=== PATIENT | female | born 2000 | race Caucasian/White ===

== ENCOUNTER 2020-08-01 12:05 | Outpatient (CLI) | payer OTHER, SELFPAY ==
[2020-08-01 13:00] LABS: Add Urine Microscopic? YES; Appearance Urine Cloudy (Clear); Bacteria Urine Trace /hpf; Bilirubin Urine Negative (Negative); Blood Urine 1+ (Negative); Color Urine Yellow (Yellow); Glucose Urine UA Negative (Negative); Ketones Urine Negative (Negative); Leukocyte Esterase Ur Negative LEU/UL (Negative); Mucus Urine Rare /lpf; Nitrate Urine Negative (Negative); Protein Urine Negative (Negative); Specific Grav Ur 1.013 (1.001-1.035); Squamous Epithelial Cell Urine Many /hpf (Few); Urobilinogen Urine Negative mg/dL (<2.0); WBC Urine 0-3 /hpf
== END 2020-08-01 12:06 | disposition home or self-care (01) ==
PROVIDERS: PCP Internal Medicine; Visit Provider Clinical Nurse Specialist
DX: N30.00 Acute cystitis without hematuria (principal)
CPT/HCPCS: 81001

== ENCOUNTER 2021-02-03 02:14 | Emergency (ER) | payer OTHER, SELFPAY ==
--- NOTE | ~2021-02-03 | US_ITS ---
EXAMINATION: US OB <=14 wk fetus w TV DATE: 02/03/2021 05:08 INDICATION: Pelvic pain during first trimester TECHNIQUE: Real-time pelvic ultrasound utilizing both a transvaginal and transabdominal probe was pe rformed. The interpreting radiologist was not present for the study. COMPARISON: None. FINDINGS: The uterus measures 6.4 x 4.2 x 5.3 cm. There is an intrauterine gestational sac. A yolk sac is iden tified but no pole is yet apparent. The mean sac diameter measures 12 mm, which correlates with an estimated gestational age of 5 weeks and 6 days. The right ovary measures 6.0 x 2.4 x 2.2 cm. There are a few simple appearing anechoic cysts in the r ight ovary, the 3 largest measuring 1.9 cm, 1.8 cm and 1.2 cm in maximal diameters. The left ovary me asures 4.0 x 2.0 x 1.5 cm. Multiple anechoic cysts/follicles measuring <5 mm in the left ovary. Vascu lar flow identified in both ovaries on color Doppler. There is no free fluid in the pelvis. IMPRESSION: 1. Intrauterine gestational sac with yolk sac but no pole yet apparent likely due to early stag e of . 2. Gestational age by ultrasound based upon mean sac diameter of 5 weeks 6 day(s) +/- 4 day(s) with ultrasound estimated date of delivery ([facility]) of 09/30/2021. Reviewed, dictated and finalized at location A. IMPRESSION: 1. Intrauterine gestational sac with yolk sac but no pole yet apparent tad [place] due to early stage of . 2. Gestational age by ultrasound based upon mean sac diameter of 5 weeks 6 day (s) +/- 4 day(s) with ultrasound estimated date of delivery ([place]) of 09/30/2021 .
[2021-02-03 02:17] VITALS: BP 128/85; PULSE 87; RESP 16; TEMP 36.9; O2SAT 96
[2021-02-03 02:28] VITALS: BP 128/85; PULSE 87; RESP 18; TEMP 36.9; O2SAT 95
[2021-02-03 02:34] VITALS: BP 128/85; PULSE 87; RESP 18; TEMP 36.9; O2SAT 95
--- NOTE | 2021-02-03 02:37 | PC.NURSE ---
Pt presents to ED with complaints of peristent nausea and emesis for a few days . Pt states that she confirmed that she is via home test and states she is approx 6 weeks ; LMP 12/21/20. Pt states she has not seen her OB and was scheduled for this upcoming Friday. Pt states she has also been experiencing moderate abdomninal cramping and denies vaginal bleeding at this time. Pt states she treated nausea with zofran at approx 0100 with no relief. States she came in tonight because the nausea and emesis were becoming too much to bare. Pt alert and oriented x4. Breathing even and unlabored. Urine specimen provided. Pt provided emesis basin and call button. Advised to press call button for assistance.
--- NOTE | 2021-02-03 03:08 | PC.NURSE ---
Bedside urine test results were positive.
[2021-02-03 03:35] LABS: Basophils Absolute Auto 0.1 K/mm3 (0.0-0.1); Basophils Percent Auto 0.5 % (0.2-1.2); Eosinophils Percent Auto 0.3 % (0-4.4); Hematocrit 45.2 % (37.0-47.0); Immature Granulocyte Absolute 0.05 K/mm3 (0.00-0.031); Immature Granulocyte Percent A 0.4 % (0-0.5); Lymphocytes Percent Auto 9.2 % (18.3-44.2); Mean Corpuscular HGB Conc 35.4 g/dl (32-36); Mean Corpuscular Hemoglobin 30.3 pg (26-34); Mean Corpuscular Volume 85.6 fl (80-100); Mean Platelet Volume 11.3 fl (7.4-10.4); Monocytes Absolute Auto 0.7 K/mm3 (0.1-0.6); Monocytes Percent Auto 5.4 % (2.6-8.5); Neutrophils Percent Auto 84.2 % (45.5-73.1); Platelet Count Result 182 k/mm3 (150-375); Red Blood Count 5.28 M/mm3 (4.2-5.4); Red Cell Distribution Width 11.9 % (11.5-14.5); White Blood Count 11.9 K/mm3 (4.5-10.0)
[2021-02-03] MEDS: SODIUM CHLORIDE 0.9% IV 1,000 ML 999 ML IV CONT (03:36)
[2021-02-03] MEDS: METOCLOPRAMIDE HCL INJ 10 MG/2 ML VIAL IV PUSH (03:37)
[2021-02-03 03:40] LABS: Add Urine Microscopic? YES; Appearance Urine Cloudy (Clear); Bacteria Urine Trace /hpf; Bilirubin Urine Negative (Negative); Blood Urine Negative (Negative); Color Urine Yellow (Yellow); Glucose Urine UA Negative (Negative); Ketones Urine 2+ mg/dL (Negative); Leukocyte Esterase Ur Negative LEU/UL (Negative); Mucus Urine Few /lpf; Nitrate Urine Negative (Negative); Protein Urine 3+ mg/dL (Negative); Specific Grav Ur 1.028 (1.001-1.035); Squamous Epithelial Cell Urine Many /hpf (Few); Urobilinogen Urine Negative mg/dL (<2.0)
[2021-02-03 03:42] VITALS: BP 139/83; PULSE 97; RESP 20; O2SAT 100
--- NOTE | 2021-02-03 03:43 | PC.NURSE ---
Pt resting on cart with spouse at bedside. Pt remains alert and oriented x4 with stable vitals. Pt in no obvious distress at this time. Pt with x1 episode of emesis; new bag provided. Pt and spouse advised to press call button for assistance.
[2021-02-03 03:46] LABS: Alanine Aminotransferase 17 U/L (4-35); Alkaline Phosphatase 59 U/L (38-126); Anion Gap 18 mmol/L (8-16); Aspartate Amino Transferase 26 U/L (14-36); Bilirubin,Total 1.1 mg/dL (0.2-1.3); Blood Urea Nitrogen 9 mg/dL (7-17); Calcium 9.6 mg/dL (8.4-10.2); Carbon Dioxide 11 mmol/L (22-30); Chloride 105 mmol/L (98-107); Estimated CRCL calculation 77 ml/min; Estimated Glomerular Filt Rate > 60; Glucose 96 mg/dL (65-105); Lipase 45 U/L (23-300); Potassium 3.9 mmol/L (3.4-5.0); Sodium 134 mmol/L (137-145)
--- NOTE | 2021-02-03 03:53 | PC.NURSE ---
Pt complaining of severe abdominal pain and cramping. EDMD notified and no new order given at this time.
--- NOTE | 2021-02-03 04:32 | PC.NURSE ---
Pt to radiology via cart.
--- NOTE | 2021-02-03 04:48 | PC.NURSE ---
pt remains in radiology.
--- NOTE | 2021-02-03 04:57 | PC.NURSE ---
Pt returned from radiology. States she feels so much better in regard to nausea and emesis. Pt states abdominal pain persists.
--- NOTE | 2021-02-03 04:58 | ED.GENADULT ---
HPI - General Adult General Chief complaint: Nausea/Vomiting/Diarrhea Stated complaint: n/v approximately 6 weeks Time Seen by Provider: 02/03/21 02:37 History of Present Illness HPI narrative: Patient is a 20-year-old female who presents the emergency department chief complaint of nausea and vomiting. Patient reports that she is approximately 6 weeks and has started having nausea and vomiting today patient reports she has been nauseated throughout the and has not had care yet and has not had her first [facility] visit. Patient reports that she had no bleeding or no discharge. Patient reports not having ultrasound during this . Patient states this is her first . Patient states she is also had some cramping in her abdomen and feels uncomfortable in her abdomen. Related Data Allergies Allergy/AdvReac Type Severity Reaction Status Date / Time No Known Allergies Allergy Unknown Verified 11/14/20 14:33 Review of Systems Review of Systems: Narrative: A 10 system review of systems was completed on the patient and is negative except for what is stated in the HPI. Nursing and ancillary documentation was reviewed. PMFSH Past Medical History Medical History ADHD Depression Family history of factor V Leiden mutation Surgical History Surgical History [place] teeth removed Family History Family History Grandparent Cancer of unknown origin Diabetes mellitus Mother Factor 5 Leiden mutation, heterozygous Other Asthma Social History Social History Smoking status: Former smoker Second hand tobacco smoke exposure: No Alcohol intake: never Substance use: former Substance use type: marijuana Exam Narrative: Exam Narrative: GENERAL: Well-appearing, well-nourished, and in no acute distress. HEAD: Normocephalic, atraumatic. EYES: PERRLA and EOMI. ENT: Nares clear, no rhinorrhea or epistaxis. Mucous membranes moist. NECK: Supple. CHEST: Clear to auscultation. No respiratory distress. HEART: Regular rate and rhythm. No murmur heard. Normal peripheral pulses. ABDOMEN: Soft, mild tenderness to palpation in the lower quadrants of the abdomen, nondistended, normal active bowel sounds. EXTREMITIES: Normal range of motion. No edema. SKIN: Warm, dry, no rash. NEURO: No focal deficits. Alert and oriented x3. PSYCH: Normal mood and affect. Course Vital Signs Vital signs: Vital Signs Temperature 36.9 C 02/03/21 02:17 Pulse Rate 87 02/03/21 02:17 Respiratory Rate 16 02/03/21 02:17 Blood Pressure 128/85 02/03/21 02:17 Pulse Oximetry 96 02/03/21 02:17 Temperature 36.9 C 02/03/21 02:34 Pulse Rate 97 02/03/21 03:42 Respiratory Rate 20 02/03/21 03:42 Blood Pressure 139/83 02/03/21 03:42 Pulse Oximetry 100 02/03/21 03:42 Medical Decision Making Vital Signs Vital Signs: Vital Signs Temperature 36.9 C 02/03/21 02:17 Pulse Rate 87 02/03/21 02:17 Respiratory Rate 16 02/03/21 02:17 Blood Pressure 128/85 02/03/21 02:17 Pulse Oximetry 96 02/03/21 02:17 Temperature 36.9 C 02/03/21 02:34 Pulse Rate 97 02/03/21 03:42 Respiratory Rate 20 02/03/21 03:42 Blood Pressure 139/83 02/03/21 03:42 Pulse Oximetry 100 02/03/21 03:42 Lab Data Result diagrams: 02/03/21 03:27 02/03/21 03:27 Labs: Lab Results 02/03/21 02/03/21 02/03/21 Range/Units 03:27 03:27 03:27 WBC 11.9 H (4.5-10.0) K/mm3 RBC 5.28 (4.2-5.4) M/mm3 Hgb 16.0 H (12.0-15.0) g/dL Hct 45.2 (37.0-47.0) % MCV 85.6 (80-100) fl MCH 30.3 (26-34) pg MCHC 35.4 (32-36) g/dl RDW 11.9 (11.5-14.5) % Plt Count 182 (150-375) k/mm3
--- NOTE | 2021-02-03 05:06 | PC.NURSE ---
EDMD presented to bedside to update pt and spouse on poc. All questions and concerns addressed. Call button and personal items within reach. Pt advised to press call button for assistance.
[2021-02-03 05:48] VITALS: BP 121/85; PULSE 90; RESP 18; TEMP 36.8; O2SAT 98
[2021-02-03 05:55] VITALS: BP 121/75; PULSE 90; RESP 18; TEMP 36.8; O2SAT 98
== END 2021-02-03 06:05 | disposition home or self-care (01) ==
PROVIDERS: Emergency Provider Emergency Medicine; PCP Internal Medicine
DX: O21.9 Vomiting of pregnancy, unspecified (principal); Z87.891 Personal history of nicotine dependence; Z3A.01 Less than 8 weeks gestation of pregnancy
CPT/HCPCS: 36415; 76801; 76817; 80053; 81001; 81025; 83690; 84702; 85025; 87086; 87088; 96361; 96374; 99284; J2765; J7030

== ENCOUNTER 2021-02-05 13:35 | Observation (INO) | payer OTHER, SELFPAY ==
--- NOTE | ~2021-02-05 | US_ITS ---
EXAMINATION: US OB <= 14 weeks fetus DATE: 02/05/2021 17:28 INDICATION: Nausea and vomiting TECHNIQUE: Real-time transabdominal obstetric ultrasound. FINDINGS: 02/03/2021 The uterus measures 6.9 x 5 x 7.1 cm. There is an intrauterine gestational sac, with pole ident ified. The crown rump length measures 0.23 cm, which correlates with a estimated gestational age of 5 weeks 5 days. heart tones are identified measuring 106 BPM. There is a 1.9 cm corpus luteal cyst of the right ovary. The left ovary is not visualized. IMPRESSION: 1. SL IUP with an EGA of 5 weeks, 5 days (EDC by current ultrasound of 10/03/2021). 2: Right ovarian corpus luteal cyst measuring 1.9 cm. Reviewed, dictated and finalized at location A. IMPRESSION: 1. SL IUP with an EGA of 5 weeks, 5 days (EDC by current ultrasound of 10/03/20). 2: Right ovarian corpus luteal cyst measuring 1.9 cm.
[2021-02-05 13:42] VITALS: BP 133/87; PULSE 116; RESP 18; TEMP 36.6; O2SAT 98
--- NOTE | 2021-02-05 14:14 | ED.NAVMDI ---
HPI - Nausea/Vomiting/Diarrhea General Chief complaint: Nausea/Vomiting/Diarrhea Stated complaint: /vomiting Time Seen by Provider: 02/05/21 14:14 Source: patient Mode of arrival: ambulatory Limitations: no limitations History of Present Illness HPI Narrative: Patient is a 20-year-old female G1, P0 currently 6 weeks dated by ultrasound who presents for evaluation of intractable nausea and vomiting. Patient states she has had numerous episodes of non bloody non bilious emesis over the past 4 days. States she was last able to tolerate any oral intake 6 days ago. She reports mild abdominal cramping without vaginal bleeding or discharge. No pelvic pain, no contraction-like pain. No loss of fluids. Patient has been trying Zofran and Reglan without any improvement in her symptoms. She is also taking Unisom without any improvement. Pt following with Dr. Barr this . Pt with recent visit to our ER with negative work up and discharged home after clinical improvement in nausea. Related Data Allergies Allergy/AdvReac Type Severity Reaction Status Date / Time No Known Allergies Allergy Unknown Verified 11/14/20 14:33 Review of Systems Review of Systems: Narrative: CONSTITUTIONAL: Denies fever, chills, or sweats. EYES: Denies visual changes, redness, or discharge. ENT: Denies rhinorrhea, congestion, sore throat, or otalgia. CARDIOVASCULAR: Denies chest pain, palpitations, or edema. RESPIRATORY: Denies cough or dyspnea. GASTROINTESTINAL: Reports mild abdominal cramping, nausea and vomiting GENITOURINARY: Denies dysuria or hematuria. SKIN: Denies rash or itching. MUSCULOSKELETAL: Denies back pain, joint pain, or myalgia. NEUROLOGIC: Denies headache, numbness, reports lightheadedness and dizziness with standing PMFSH Past Medical History Medical History ADHD Depression Family history of factor V Leiden mutation Surgical History Surgical History [place] teeth removed Family History Family History Grandparent Cancer of unknown origin Diabetes mellitus Mother Factor 5 Leiden mutation, heterozygous Other Asthma Social History Social History Smoking status: Former smoker Second hand tobacco smoke exposure: No Alcohol intake: never Substance use: former Substance use type: marijuana Gender identity (if verbalized by the patient): Female Exam Narrative: Exam Narrative: GENERAL: Awake, alert, conversant HEAD: Normocephalic, atraumatic. EYES: PERRLA and EOMI. ENT: Nares clear, no rhinorrhea or epistaxis. Mucous membranes dry NECK: Supple. CHEST: No respiratory distress, breathing even and non labored HEART: Tachycardic rate, sinus rhythm ABDOMEN:Non distended, mild tenderness throughout, no guarding, rebound or rigidity EXTREMITIES: Normal range of motion. No edema. SKIN: Warm, dry, no rash. NEURO:No focal deficits. Alert and oriented x3 Course Vital Signs Vital signs: Vital Signs Temperature 36.6 C 02/05/21 13:42 Pulse Rate 116 H 02/05/21 13:42 Respiratory Rate 18 02/05/21 13:42 Blood Pressure 133/87 02/05/21 13:42 Pulse Oximetry 98 02/05/21 13:42 Temperature 36.6 C 02/05/21 13:42 Pulse Rate 106 H 02/05/21 17:53 Respiratory Rate 14 02/05/21 14:49 Blood Pressure 129/71 02/05/21 17:53 Pulse Oximetry 100 02/05/21 14:49 MDM - Nausea/Vomiting/Diarrhea MDM Narrative Medical decision making narrative: Patient presented for evaluation of intractable nausea and vomiting in the setting of early . The time of initial assessment, patient is tachycardic without hypotension. She is clinically dehydrated appearing. She does have some very mild abdominal tenderness on exam without focal tenderness or any peritoneal signs. L
[2021-02-05] MEDS: FAMOTIDINE 20 MG/2 ML VIAL IV PUSH ×2 (14:36→21:12)
[2021-02-05] MEDS: METOCLOPRAMIDE HCL INJ 10 MG/2 ML VIAL IV PUSH (14:36)
[2021-02-05] MEDS: SODIUM CHLORIDE 0.9% IV 1,000 ML 999 ML IV CONT (14:37)
[2021-02-05 14:49] VITALS: BP 130/89; PULSE 89; RESP 14; O2SAT 100
--- NOTE | 2021-02-05 14:54 | PC.NURSE ---
Patient reporting nausea, headache, and dizziness at this time. Dry heaves noted. Patient aware of need for urine sample and will call RN when feeling better after social media analyst to walk to restroom for sample. Call light in reach and significant other at bedside.
[2021-02-05 15:11] LABS: Alanine Aminotransferase 19 U/L (4-35); Albumin Level 4.8 g/dL (3.5-5.1); Alkaline Phosphatase 48 U/L (38-126); Anion Gap 14 mmol/L (8-16); Aspartate Amino Transferase 32 U/L (14-36); Bilirubin,Total 1.7 mg/dL (0.2-1.3); Blood Urea Nitrogen 9 mg/dL (7-17); Calcium 9.3 mg/dL (8.4-10.2); Carbon Dioxide 18 mmol/L (22-30); Chloride 99 mmol/L (98-107); Estimated CRCL calculation 100 ml/min; Estimated Glomerular Filt Rate > 60; Glucose 105 mg/dL (65-105); Lipase 32 U/L (23-300); Potassium 3.5 mmol/L (3.4-5.0); Sodium 131 mmol/L (137-145)
[2021-02-05 15:25] LABS: Basophils Absolute Auto 0.1 K/mm3 (0.0-0.1); Basophils Percent Auto 0.6 % (0.2-1.2); Eosinophils Percent Auto 0.3 % (0-4.4); Hematocrit 42.6 % (37.0-47.0); Hemoglobin 15.8 g/dL (12.0-15.0); Immature Granulocyte Absolute 0.07 K/mm3 (0.00-0.031); Immature Granulocyte Percent A 0.6 % (0-0.5); Lymphocytes Absolute Auto 1.25 K/mm3 (0.9-3.2); Lymphocytes Percent Auto 10.9 % (18.3-44.2); Mean Corpuscular HGB Conc 37.1 g/dl (32-36); Mean Corpuscular Hemoglobin 30.5 pg (26-34); Mean Corpuscular Volume 82.2 fl (80-100); Mean Platelet Volume 10.8 fl (7.4-10.4); Monocytes Absolute Auto 1.1 K/mm3 (0.1-0.6); Monocytes Percent Auto 9.9 % (2.6-8.5); Neutrophils Absolute Auto 8.9 K/mm3 (1.3-6.7); Neutrophils Percent Auto 77.7 % (45.5-73.1); Platelet Count Result 195 k/mm3 (150-375); Red Blood Count 5.18 M/mm3 (4.2-5.4); Red Cell Distribution Width 11.8 % (11.5-14.5); White Blood Count 11.5 K/mm3 (4.5-10.0)
[2021-02-05 16:50] LABS: Add Urine Microscopic? YES; Appearance Urine Cloudy (Clear); Bacteria Urine Trace /hpf; Bilirubin Urine Negative (Negative); Blood Urine Negative (Negative); Color Urine Yellow (Yellow); Glucose Urine UA Negative (Negative); Ketones Urine 2+ mg/dL (Negative); Leukocyte Esterase Ur Negative LEU/UL (Negative); Mucus Urine Heavy /lpf; Nitrate Urine Negative (Negative); Protein Urine 1+ mg/dL (Negative); Specific Grav Ur 1.023 (1.001-1.035); Squamous Epithelial Cell Urine Many /hpf (Few)
[2021-02-05] MEDS: ONDANSETRON INJ 4 MG/2 ML VIAL IV PUSH (17:42)
[2021-02-05 17:53] VITALS: BP 115/80; BP 123/76; BP 129/71; PULSE 106; PULSE 74; PULSE 80
[2021-02-05 18:48] LABS: Thyroid Stimulating Hormone Reflex 0.608 uIU/mL (0.465-4.68)
[2021-02-05] MEDS: DEXTROSE 5%/LACTATED RINGERS 1,000 ML 150 ML IV CONT (19:23)
[2021-02-05 19:24] VITALS: BP 138/76; PULSE 69; BMI 19.5
--- NOTE | 2021-02-05 19:25 | OBADM ---
This patient, Verónica Mcnair, admitted to the OB room OB Post [facility] for observation. Patient/family oriented to hospital policies and general routines including ID bracelet, bed and alarms, visiting hours, pain management, procedures, bathroom and other care routines, personal items, smoking policy, room service/diet, and visiting hours. Patient/Family are encouraged to report perceived risks to care and to ask questions if they do not understand what they are told or what they should do.
[2021-02-05 19:33] VITALS: TEMP 37.1
[2021-02-05 19:34] VITALS: BP 136/73; PULSE 70
[2021-02-05] MEDS: METOCLOPRAMIDE HCL 10 MG TABLET PO (21:12)
[2021-02-06 02:10] VITALS: TEMP 37
[2021-02-06 02:11] VITALS: BP 103/45; PULSE 72
[2021-02-06] MEDS: ONDANSETRON INJ 4 MG/2 ML VIAL IV PUSH ×2 (02:11→07:59)
[2021-02-06] MEDS: DEXTROSE 5%/LACTATED RINGERS 1,000 ML 150 ML IV CONT ×2 (02:11→08:52)
[2021-02-06] MEDS: METOCLOPRAMIDE HCL 10 MG TABLET PO ×2 (06:41→12:31)
[2021-02-06] MEDS: FAMOTIDINE 20 MG/2 ML VIAL IV PUSH (09:14)
--- NOTE | 2021-02-06 09:39 | PM.IMHP ---
H&P: HPI History of Present Illness Date/Time: 02/06/21 09:39 20 y/o G1 at 6+5 by LMP 12/21 came to ER yesterday (02/05) due to persistent N/V not resolved with medications she has at home (po zofran, Unisom, and vitamin B6). She reports not keeping any solid food down since 01/31. She went to the ER 02/03 and was given fluids and evaluated and was discharged home. The N/V have worsened since. She had pinkish spotting 5-7 days ago but none since. No abdominal pain. + heartburn. No urinary frequency or dysuria. Urine looks very dark, and she reports urinating less frequently than usual. Chief Complaint: Nausea and vomiting in Review of Systems Review of Systems: All systems reviewed & are unremarkable except as noted in HPI and below PMFSH Past Medical History Medical History ADHD Depression Family history of factor V Leiden mutation Surgical History Surgical History [place] teeth removed Family History Family History Grandparent Cancer of unknown origin Diabetes mellitus Mother Factor 5 Leiden mutation, heterozygous Other Asthma Social History Social History Smoking status: Former smoker Second hand tobacco smoke exposure: No Alcohol intake: never Substance use: former Substance use type: marijuana Gender identity (if verbalized by the patient): Female Meds Home Medications and Allergies Home Medications Medication Instructions Recorded Confirmed Type ondansetron HCl 4 mg tablet 4 mg PO Q6H PRN #30 tablet 02/01/21 02/05/21 Rx metoclopramide HCl [Reglan] 10 mg PO Q6H PRN #20 tablet 02/03/21 02/05/21 Rx Allergies Allergy/AdvReac Type Severity Reaction Status Date / Time No Known Allergies Allergy Unknown Verified 11/14/20 14:33 Vital Signs Vital Signs - 24 hr 02/05/21 13:42 02/05/21 14:49 02/05/21 17:53 Temperature 36.6 C Pulse Rate 116 H 89 106 H Respiratory Rate 18 14 Blood Pressure 133/87 130/89 115/80 Pulse Oximetry 98 100 02/05/21 19:24 02/05/21 19:33 02/05/21 19:34 Temperature 37.1 C Pulse Rate 69 70 Respiratory Rate Blood Pressure 138/76 136/73 Pulse Oximetry 02/06/21 02:10 02/06/21 02:11 Temperature 37.0 C Pulse Rate 72 Respiratory Rate Blood Pressure 103/45 L Pulse Oximetry Exam Const: General: healthy appearing, no acute distress, alert and awake Resp: Auscultation: clear to auscultation bilaterally Cardio: Rate: regular rate Rhythm: regular rhythm GI: Inspection: non-distended GI Palp: Yes Soft to palpation and No Tenderness to palpation present (GI) : General: Yes no CVA tenderness Extrem: General: no pedal edema and no calf tenderness Psych: Mental Status: mental status grossly normal H&P: Results Labs Labs: Short CBC 02/05/21 Range/Units 14:48 WBC 11.5 H (4.5-10.0) K/mm3 Hgb 15.8 H (12.0-15.0) g/dL Hct 42.6 (37.0-47.0) % Plt Count 195 (150-375) k/mm3 BMP 02/05/21 14:48 Sodium 131 L Potassium 3.5 Chloride 99 Carbon Dioxide 18 L BUN 9 Creatinine 0.60 L Glucose 105 Calcium 9.3 Liver Function 02/05/21 Range/Units 14:48 Total Bilirubin 1.7 H (0.2-1.3) mg/dL AST 32 (14-36) U/L ALT 19 (4-35) U/L Alkaline Phosphatase 48 (38-126) U/L Albumin 4.8 (3.5-5.1) g/dL Urine 02/05/21 Range/Units 16:26 Urine Color Yellow (Yellow) Urine Appearance Cloudy H (Clear) Urine pH 6.0 (5.0-9.0) Ur Specific [place] 1.023 (1.001-1.035) Urine Protein 1+ H (Negative) mg/dL Urine Glucose (UA) Negative (Negative) mg/dL Assessment and Plan Assessment and plan (1) Hyperemesis affecting , antepartum: Code(s): O21.0 - Mild hyperemesis gravidarum Status: Acute Assessment
[2021-02-06] MEDS: PROMETHAZINE HCL 25 MG/ML AMPUL 12.5 MG IV PUSH (10:38)
[2021-02-06 10:41] VITALS: BP 120/66; PULSE 77
--- NOTE | 2021-02-06 13:26 | PM.OBPNVD ---
OB - PN: Subj Subjective Date/time seen: 02/06/21 13:26 Pt seen at bedside. Reports feeling much better than she did at time of presentation, however, still not completely back at baseline just yet. Patient has not experienced any further N/V since arrival to L&D last night. She is tolerating clear liquids and broth and crackers. Vital signs WNL. Plan is for patient to complete current bag of IV hydration and ensure no further N/V. Will d/c home in stable condition. Patient aware that it may take a bit longer for her to feel completely back to baseline considering she has been experiencing N/V for several days. May continue Zofran and Reglan at home. Rx for Zofran ODT sent to pharmacy. Advised to contact office if ineffective and vomiting recurs. Will consider phenergan suppositories. Pt advised to drink small amounts of low sugar sports drink or Pedialyte or Pedia pops at a time. May also benefit from Ensure or Boost to increase caloric intake in addition to a bland diet (BRAT). Pt also advised to reschedule office visit. Emergency precautions reviewed. All questions and concerns addressed. OB - PN: Obj Data Labs CBC & Chem 7: 02/05/21 14:48 02/05/21 14:48 Labs: Laboratory Results - last 24 hr 02/05/21 02/05/21 02/05/21 14:48 14:48 14:48 WBC 11.5 H RBC 5.18 Hgb 15.8 H Hct 42.6 MCV 82.2 MCH 30.5 MCHC 37.1 H RDW 11.8 Plt Count 195 MPV 10.8 H Immature Gran % (Auto) 0.6 H Neut % (Auto) 77.7 H Lymph % (Auto) 10.9 L [place] % (Auto) 9.9 H Eos % (Auto) 0.3 Baso % (Auto) 0.6 Lymph # (Auto) 1.25 [place] # (Auto) 1.1 H Eos # (Auto) 0.0 Baso # (Auto) 0.1 Abs Immat Gran (auto) 0.07 H Absolute Neuts (auto) 8.9 H Absolute Nucleated RBC 0.0 Nucleated RBC % 0.0 Sodium 131 L Potassium 3.5 Chloride 99 Carbon Dioxide 18 L Anion Gap 14 BUN 9 Creatinine 0.60 L Estim Creat Clear Calc 100 Estimated GFR > 60 Glucose 105 Calcium 9.3 Total Bilirubin 1.7 H AST 32 ALT 19 Alkaline Phosphatase 48 Total Protein 8.0 Albumin 4.8 Lipase 32 TSH (Reflex) Beta HCG, Quant 74296.00 Urine Color Urine Appearance Urine pH Ur Specific [place] Urine Protein Urine Glucose (UA) Urine Ketones Ur Blood (Man) Urine Nitrate Urine Bilirubin Urine Urobilinogen Leukocyte Esterase Rfl Urine RBC Urine WBC Ur Squamous Epith Cells Urine Bacteria Urine Mucus Blood Type Antibody Screen Screen Baby's Blood Type Baby's JENNA Doses of RhIg Required 02/05/21 02/05/21 02/05/21 16:26 17:32 17:32 WBC RBC Hgb Hct MCV MCH MCHC RDW Plt Count MPV Immature Gran % (Auto) Neut % (Auto) Lymph % (Auto) [place] % (Auto) Eos % (Auto) Baso % (Auto) Lymph # (Auto) [place] # (Auto) Eos # (Auto) Baso # (Auto) Abs Immat Gran (auto) Absolute Neuts (auto) Absolute Nucleated RBC Nucleated RBC % Sodium Potassium Chloride Carbon Dioxide Anion Gap BUN Creatinine Estim Creat Clear Calc Estimated GFR Glucose Calcium Total Bilirubin AST ALT Alkaline Phosphatase Total Protein Albumin Lipase TSH (Reflex) 0.608 Beta HCG, Quant Urine Color Yellow Urine Appearance Cloudy H Urine pH 6.0 Ur Specific [place] 1.023 Urine Protein 1+ H Urine Glucose (UA) Negative Urine Ketones 2+ H Ur Blood (Man) Negative Urine Nitrate Negative Urine Bilirubin Negative Urine Urobilinogen 2.0 H Leukocyte Esterase Rfl Negative Urine RBC 6-10 H Urine WBC 7-9 H Ur Squamous Epith Cells Many H Urine Bacteria Trace Urine Mucus Heavy H Blood Type A Positive Antibody Screen Negative Screen Not Reportable Baby's Blood Type Not Reportable Baby's JENNA Not Reportable Dos
== END 2021-02-06 15:35 | disposition home or self-care (01) ==
LOC: ANHED 17:29 → ANHOBPP 02-06 15:30
PROVIDERS: Physician Assistant; Admitting Provider Obstetrics & Gynecology; Emergency Provider Emergency Medicine; PCP Internal Medicine; Visit Provider Student in an Organized Health Care Education/Training Program
DX: O21.0 Mild hyperemesis gravidarum (principal); Z3A.01 Less than 8 weeks gestation of pregnancy
CPT/HCPCS: 36415; 76801; 80053; 81001; 81025; 83690; 84443; 84702; 85025; 85461; 87086; 96361; 96374; 96375; 96376; 99285; A9270; G0378; J0131; J2405; J2550; J2765; J7030; J7121

== ENCOUNTER → 2021-02-16 11:30 | Outpatient (CLI) | payer OTHER, SELFPAY ==
--- NOTE | ~2021-02-16 | US_ITS ---
EXAMINATION: US OB <= 14 weeks fetus EXAM DATE: 02/16/2021 11:50 INDICATION: O36.80X0 - with inconclusive viability. 1st trimester. TECHNIQUE: Pelvic obstetrical transabdominal sonogram was performed by a technologist. There are mu ltiple grayscale and Doppler images available for interpretation. Comparison is made to prior examina tion from 02/05/2021. FINDINGS: Uterus measures 8.9 x 5.2 x 6.7 cm. There is intrauterine gestation sac. pole with heart rate confirmed at 148 beats per minute. The 10 mm crown-rump length corresponds to estimated g estational age by ultrasound of 7 weeks 0 days, estimated date of confinement 10/05/2021. Yolk sac i s identified. There is no sonographic evidence of subchorionic hemorrhage. The ovaries are morpho logically normal. IMPRESSION: Early live intrauterine gestation, age by ultrasound 7 weeks 0 days by crown-rump length on today's exam. Reviewed, dictated and finalized at location A. IMPRESSION: Early live intrauterine gestation, age by ultrasound 7 weeks 0 day s by crown-rump length on today's exam.
== END ==
PROVIDERS: Visit Provider Student in an Organized Health Care Education/Training Program
DX: O36.80X0 Pregnancy with inconclusive fetal viability, not applicable or unspecified (principal); Z3A.01 Less than 8 weeks gestation of pregnancy
CPT/HCPCS: 76801

== ENCOUNTER 2021-04-05 07:44 | Outpatient (CLI) | payer OTHER, SELFPAY ==
[2021-04-05 08:19] LABS: Basophils Percent Auto 0.3 % (0.2-1.2); Eosinophils Absolute Auto 0.1 K/mm3 (0-0.3); Eosinophils Percent Auto 0.9 % (0-4.4); Hematocrit 33.8 % (37.0-47.0); Hemoglobin 11.8 g/dL (12.0-15.0); Immature Granulocyte Absolute 0.02 K/mm3 (0.00-0.031); Immature Granulocyte Percent A 0.3 % (0-0.5); Immature Platelet Fraction Pct 7.9 % (0.9-11.2); Lymphocytes Absolute Auto 1.28 K/mm3 (0.9-3.2); Lymphocytes Percent Auto 18.7 % (18.3-44.2); Mean Corpuscular HGB Conc 34.9 g/dl (32-36); Mean Corpuscular Hemoglobin 29.8 pg (26-34); Mean Corpuscular Volume 85.4 fl (80-100); Mean Platelet Volume 11.4 fl (7.4-10.4); Monocytes Absolute Auto 0.3 K/mm3 (0.1-0.6); Monocytes Percent Auto 3.9 % (2.6-8.5); Neutrophils Absolute Auto 5.2 K/mm3 (1.3-6.7); Neutrophils Percent Auto 75.9 % (45.5-73.1); Platelet Count Result 134 k/mm3 (150-375); Red Blood Count 3.96 M/mm3 (4.2-5.4); Red Cell Distribution Width 11.6 % (11.5-14.5); White Blood Count 6.9 K/mm3 (4.5-10.0)
[2021-04-05 08:32] LABS: Add Urine Microscopic? YES; Appearance Urine Cloudy (Clear); Bacteria Urine Trace /hpf; Bilirubin Urine Negative (Negative); Blood Urine Negative (Negative); Color Urine Yellow (Yellow); Glucose Urine UA Negative (Negative); Ketones Urine Negative (Negative); Leukocyte Esterase Ur Negative LEU/UL (NEGATIVE); Mucus Urine Moderate /lpf; Nitrate Urine Negative (Negative); Protein Urine 1+ mg/dL (Negative); RBC Urine 0-2 /hpf (0-2); Specific Grav Ur 1.023 (1.001-1.035); Squamous Epithelial Cell Urine Many /hpf (Few); Urobilinogen Urine Negative mg/dL (<2.0)
[2021-04-05 08:40] LABS: Amorphous Sediment Urine Few
[2021-04-05 10:07] LABS: Thyroid Stimulating Hormone 0.741 uIU/mL (0.465-4.680)
[2021-04-05 10:19] LABS: HIV 1/2 Ab P24 Ag Result Negative (Negative)
[2021-04-05 11:05] LABS: Vitamin D 25 Hydroxy 37.6 ng/mL
[2021-04-05 11:27] LABS: Hepatitis B Surface Antigen Negative (Negative); Rubella IgG Antibody 16.2 IU/ML
[2021-04-05 11:45] LABS: Hepatitis C Virus Antibody Negative (Negative)
[2021-04-06 08:24] LABS: Rapid Plasma Reagin Non-Reactive (NonReactive)
[2021-04-11 09:08] LABS: Hematocrit 34.2 % (35.0-45.0); MCH 30.7 pg (27.0-33.0); MCV 87.5 FL (80.0-100.0); RDW 12.8 % (11.0-15.0); Red Blood Cell Count 3.91 Mill/uL (3.80-5.10)
[2021-04-13 16:48] LABS: CF Result POSITIVE (NEGATIVE); Ethnicity NG
== END 2021-04-05 07:45 | disposition home or self-care (01) ==
LOC: ANHLAB 07:47
PROVIDERS: PCP Student in an Organized Health Care Education/Training Program; Visit Provider Student in an Organized Health Care Education/Training Program
DX: Z32.00 Encounter for pregnancy test, result unknown (principal)
CPT/HCPCS: 36415; 81001; 81220; 82306; 83021; 84443; 85025; 85055; 86592; 86703; 86762; 86787; 86803; 86850; 86900; 86901; 87086; 87340; G0432

== ENCOUNTER 2021-07-10 09:45 | Outpatient (CLI) | payer OTHER, SELFPAY ==
[2021-07-10 11:18] LABS: Basophils Percent Auto 0.2 % (0.2-1.2); Eosinophils Percent Auto 0.4 % (0-4.4); Hematocrit 35.1 % (37.0-47.0); Immature Granulocyte Absolute 0.05 K/mm3 (0.00-0.031); Immature Granulocyte Percent A 0.5 % (0-0.5); Immature Platelet Fraction Pct 9.1 % (0.9-11.2); Lymphocytes Absolute Auto 1.27 K/mm3 (0.9-3.2); Lymphocytes Percent Auto 13.7 % (18.3-44.2); Mean Corpuscular HGB Conc 34.2 g/dl (32-36); Mean Corpuscular Hemoglobin 30.7 pg (26-34); Mean Corpuscular Volume 89.8 fl (80-100); Mean Platelet Volume 11.4 fl (7.4-10.4); Monocytes Absolute Auto 0.5 K/mm3 (0.1-0.6); Monocytes Percent Auto 5.3 % (2.6-8.5); Neutrophils Absolute Auto 7.4 K/mm3 (1.3-6.7); Neutrophils Percent Auto 79.9 % (45.5-73.1); Platelet Count Result 140 k/mm3 (150-375); Red Blood Count 3.91 M/mm3 (4.2-5.4); Red Cell Distribution Width 12.2 % (11.5-14.5); White Blood Count 9.3 K/mm3 (4.5-10.0)
[2021-07-10 11:25] LABS: Glucose 1 Hour PP 50gm Dose 166 mg/dL
== END 2021-07-10 09:46 | disposition home or self-care (01) ==
PROVIDERS: PCP Internal Medicine; Visit Provider Student in an Organized Health Care Education/Training Program
DX: Z34.03 Encounter for supervision of normal first pregnancy, third trimester (principal); Z3A.28 28 weeks gestation of pregnancy
CPT/HCPCS: 36415; 82947; 85025; 85055

== ENCOUNTER 2021-07-16 07:02 | Outpatient (CLI) | payer OTHER, MEDICAID, SELFPAY ==
[2021-07-16 07:55] LABS: Glucose Fasting Gestational 88 mg/dL (>/=95)
[2021-07-16 09:25] LABS: Glucose 1 Hour Gest 144 mg/dL (>/=180)
[2021-07-16 11:09] LABS: Glucose 2 Hour Gest 121 mg/dL (>/= 155)
[2021-07-16 11:52] LABS: Glucose 3 Hour Gest 145 mg/dL (>/=140)
== END 2021-07-16 07:03 | disposition home or self-care (01) ==
PROVIDERS: PCP Internal Medicine; Visit Provider Student in an Organized Health Care Education/Training Program
DX: R73.09 Other abnormal glucose (principal); R39.9 Unspecified symptoms and signs involving the genitourinary system
CPT/HCPCS: 36415; 82951; 82952; 87086; 87088

== ENCOUNTER 2021-08-24 09:12 | Outpatient (CLI) | payer OTHER, MEDICAID, SELFPAY ==
[2021-08-24 09:51] LABS: Basophils Percent Auto 0.3 % (0.2-1.2); Eosinophils Absolute Auto 0.1 K/mm3 (0-0.3); Eosinophils Percent Auto 0.5 % (0-4.4); Hemoglobin 12.1 g/dL (12.0-15.0); Immature Granulocyte Absolute 0.05 K/mm3 (0.00-0.031); Immature Granulocyte Percent A 0.5 % (0-0.5); Lymphocytes Absolute Auto 1.64 K/mm3 (0.9-3.2); Lymphocytes Percent Auto 16.5 % (18.3-44.2); Mean Corpuscular HGB Conc 34.6 g/dl (32-36); Mean Corpuscular Hemoglobin 30.6 pg (26-34); Mean Corpuscular Volume 88.4 fl (80-100); Mean Platelet Volume 11.8 fl (7.4-10.4); Monocytes Absolute Auto 0.6 K/mm3 (0.1-0.6); Monocytes Percent Auto 6.4 % (2.6-8.5); Neutrophils Absolute Auto 7.5 K/mm3 (1.3-6.7); Neutrophils Percent Auto 75.8 % (45.5-73.1); Platelet Count Result 154 k/mm3 (150-375); Red Blood Count 3.96 M/mm3 (4.2-5.4); Red Cell Distribution Width 12.1 % (11.5-14.5)
[2021-08-24 10:50] LABS: HIV 1/2 Ab P24 Ag Result Negative (Negative)
[2021-08-27 09:39] LABS: Rapid Plasma Reagin Non-Reactive (NonReactive)
== END 2021-08-24 09:13 | disposition home or self-care (01) ==
LOC: ANHLAB 09:16
PROVIDERS: PCP Internal Medicine; Visit Provider Student in an Organized Health Care Education/Training Program
DX: Z34.90 Encounter for supervision of normal pregnancy, unspecified, unspecified trimester (principal)
CPT/HCPCS: 36415; 85025; 86592; 86703; G0432

== ENCOUNTER 2021-09-26 17:03 | Inpatient (IN) | payer OTHER, MEDICAID, SELFPAY ==
[2021-09-26] VITALS (26 sets, daily range): BP systolic 118–133; BP diastolic 61–81; PULSE 67–98; RESP 18; TEMP 36.9; BMI 24.2
[2021-09-26 17:40] LABS: Basophils Absolute Auto 0.1 K/mm3 (0.0-0.1); Basophils Percent Auto 0.5 % (0.2-1.2); Eosinophils Absolute Auto 0.1 K/mm3 (0-0.3); Eosinophils Percent Auto 0.6 % (0-4.4); Hemoglobin 13.3 g/dL (12.0-15.0); Immature Granulocyte Absolute 0.04 K/mm3 (0.00-0.031); Immature Granulocyte Percent A 0.4 % (0-0.5); Lymphocytes Absolute Auto 2.11 K/mm3 (0.9-3.2); Lymphocytes Percent Auto 20.3 % (18.3-44.2); Mean Corpuscular HGB Conc 35.9 g/dl (32-36); Mean Corpuscular Hemoglobin 31.4 pg (26-34); Mean Corpuscular Volume 87.5 fl (80-100); Mean Platelet Volume 11.9 fl (7.4-10.4); Monocytes Absolute Auto 0.6 K/mm3 (0.1-0.6); Monocytes Percent Auto 5.4 % (2.6-8.5); Neutrophils Absolute Auto 7.6 K/mm3 (1.3-6.7); Neutrophils Percent Auto 72.8 % (45.5-73.1); Platelet Count Result 174 k/mm3 (150-375); Red Blood Count 4.23 M/mm3 (4.2-5.4); Red Cell Distribution Width 11.9 % (11.5-14.5); White Blood Count 10.4 K/mm3 (4.5-10.0)
--- NOTE | 2021-09-26 17:43 | LDADM ---
This patient, Verónica Mcnair, was admitted to Labor/Delivery/Recovery 108 on 09/26/21 at 17:03. Plans for labor, pain management and were discussed with patient. Patient/family oriented to hospital policies and general routines including ID bracelet, bed and alarms, visiting hours, pain management, procedures, bathroom and other care routines, personal items, smoking policy, room service/diet and guest tray routines, security routines, and visiting hours. Patient/Family are encouraged to report perceived risks to care and to ask questions if they do not understand what they are told or what they should do. See OBIX for further documentation.
[2021-09-26] MEDS: DINOPROSTONE 10 MG VAG INSERT VAGINAL (17:55)
[2021-09-27] VITALS (71 sets, daily range): BP systolic 95–149; BP diastolic 44–90; PULSE 66–150; RESP 16–20; TEMP 36.7–37.1; O2SAT 98–100
[2021-09-27] MEDS: OXYTOCIN 30 UNITS/NS 500 ML 30 UNITS/500 ML BAG IV CONT (06:35)
[2021-09-27] MEDS: LACTATED RINGERS 1,000 ML 125 ML IV CONT ×2 (06:35→10:11)
[2021-09-27] MEDS: fentaNYL CITRATE INJ (*CRX) 100 MCG/2 ML VIAL 50 MCG IV PUSH ×2 (08:54→09:10)
[2021-09-27] MEDS: SODIUM CHLORIDE 0.9% IV 1,000 ML 150 ML I-UTERINE (09:00)
--- NOTE | 2021-09-27 10:11 | WPDANESEPP ---
Anes - Eval Pre Procedure Procedure: labor epidural Date/Time: 09/27/21 10:11 Surgeon: anuradha Preop Diagnosis: pain during labor Pre Op Diagnosis: iol Patient Data Age: 21 Gender: F Height: 1.6 m Weight: 62 kg Last Vital Signs Temp 37.0 C 09/27/21 09:41 Pulse 79 09/27/21 10:10 Resp 18 09/27/21 09:41 BP 146/83 H 09/27/21 10:10 Pulse Ox 100 09/27/21 10:08 Allergies Allergy/AdvReac Type Severity Reaction Status Date / Time No Known Allergies Allergy Unknown Verified 09/20/21 10:30 Home Medications Medication Instructions Recorded Confirmed Type prenat.vits,aleena,daw-sqew-olwnc 1 tablet PO DAILY 04/10/21 09/26/21 History Laboratory Tests 09/26/21 09/26/21 09/26/21 17:31 17:31 17:31 WBC 10.4 K/mm3 H K/mm3 (4.5-10.0) RBC 4.23 M/mm3 M/mm3 (4.2-5.4) Hgb 13.3 g/dL g/dL (12.0-15.0) Hct 37.0 % % (37.0-47.0) MCV 87.5 fl fl (80-100) MCH 31.4 pg pg (26-34) MCHC 35.9 g/dl g/dl (32-36) RDW 11.9 % % (11.5-14.5) Plt Count 174 k/mm3 k/mm3 (150-375) MPV 11.9 fl H fl (7.4-10.4) Immature Gran % (Auto) 0.4 % % (0-0.5) Neut % (Auto) 72.8 % % (45.5-73.1) Lymph % (Auto) 20.3 % % (18.3-44.2) [place] % (Auto) 5.4 % % (2.6-8.5) Eos % (Auto) 0.6 % % (0-4.4) Baso % (Auto) 0.5 % % (0.2-1.2) Lymph # (Auto) 2.11 K/mm3 K/mm3 (0.9-3.2) [place] # (Auto) 0.6 K/mm3 K/mm3 (0.1-0.6) Eos # (Auto) 0.1 K/mm3 K/mm3 (0-0.3) Baso # (Auto) 0.1 K/mm3 K/mm3 (0.0-0.1) Abs Immat Gran (auto) 0.04 K/mm3 H K/mm3 (0.00-0.031) Absolute Neuts (auto) 7.6 K/mm3 H K/mm3 (1.3-6.7) Absolute Nucleated RBC 0.0 K/mm3 K/mm3 (0.0-0.012) Nucleated RBC % 0.0 % % (0.0-0.2) RPR Pending Blood Type A Positive Antibody Screen Negative Patient hx anesthesia problems: none Family hx anesthesia problems: none Results Review: All pre-operative results and documents have been reviewed as part of the pre-operative evaluation. [facility] Past Medical History Medical History ADHD Depression Family history of factor V Leiden mutation Surgical History Surgical History History of placement of ear tubes [place] teeth removed Family History Family History Grandparent Diabetes mellitus Cancer of unknown origin Mother Factor 5 Leiden mutation, heterozygous Breast cancer in female Social History Social History Smoking status: Never smoker Second hand tobacco smoke exposure: No Alcohol intake: never Substance use: former Substance use type: marijuana Gender identity (if verbalized by the patient): Female Spiritual care concerns: No Exam Day of Procedure 09/27/21 10:11
--- NOTE | 2021-09-27 11:01 | P.PCNOB_ITS ---
OB - Delivery Note Procedure Delivery date: 09/27/21 Procedure: Patient is a 21-year-old now who presented to labor and delivery on 09/26/2021 at 39 weeks gestation for scheduled elective induction of labor. Patient was admitted to labor and delivery. Induction of labor was begun with Cervidil. Initial cervical exam was 1 cm dilated. Cervidil remained in place for 12 hours. Cervical exam remained relatively unchanged following removal of Cervidil. Pitocin was started for labor augmentation. Artificial rupture membranes was performed at 7:48 a.m. Clear amniotic fluid was noted. Patient was 3 cm dilated at this time. Pitocin was continuously titrated. Patient became uncomfortable and requested an epidural for pain management which was placed without difficulty. Variable decelerations were noted on the EFM. An IUPC was placed for enhanced monitoring and an amnioinfusion was started. Patient made quick cervical change was noted to be fully dilated at 10:16 a.m. A red rubber catheter was used to drain the bladder of 300 cc of clear urine. Patient was encouraged to push and found to be pushing well. Patient was prepped and draped for delivery. At 10:38 a.m., patient delivered head atraumatically without difficulty in RONNIE presentation. Occiput restituted to maternal right side. With subsequent push, the infant's neck, shoulders, and rest of body delivered without difficulty. Infant was crying spontaneously. Infant's nose and mouth were suctioned with bulb suction. was placed on maternal abdomen where care was assumed by awaiting nursing staff. Upon inspection, moderate bleeding was noted from a periurethral laceration. This laceration was repaired with 2-0 Vicryl ensuring hemostasis. Delayed cord clamping was performed while laceration was being repaired for approximately 2 minutes. Cord was clamped and cut. A segment of cord was collected for cord gases. Cord blood was collected. The placenta was delivered spontaneous and intact. Uterine fundus was noted to be firm with massage. A first-degree perineal laceration was also noted. This laceration was reapproximated with 2-0 Vicryl. Excellent hemostasis was noted. Estimated blood loss for entire delivery was 150 cc. The infant was a live-born male infant, Apgars 9/9, weighing 6 lbs. 9 oz. Both mother and baby doing well at and delivery. events: Labor Induction Induction method: per cervidil protocol Delivery augmentation: rupture of membranes and pitocin Delivery monitor: external FHT, external uterine and internal uterine Route of delivery: Laceration Description: Periurethral and Perineal - 1st Degree Delivery repair: vicryl (2-0) Specimen: Yes (cord blood and cord gases) Quantitative Blood Loss (ml): 150 Anesthesia type: Epidural Disposition: floor Complications: No immediate complications [place] Baby Date of : 09/27/21 Time of : 10:38 Weeks of gestation at delivery: 39 (39.1) gender: Male Weight (pounds): 6 Weight (ounces): 9 presentation: vertex position: Right Occiput Anterior Placenta delivery description: Spontaneous cord vessel description: 3 Vessels and Delayed Cord Clamping score one minute: 9 score five minutes: 9
--- NOTE | 2021-09-27 11:01 | PM.IMHP ---
H&P: HPI History of Present Illness Date/Time: 09/27/21 11:01 Patient is a 21-year-old LMP 12/21/2020 currently 39 weeks gestation with CAROLA 10/03/2021. Patient is dated by an ultrasound on 02/05/2021 at 5 weeks gestation. Patient presents to labor and delivery for scheduled elective induction of labor. Patient reports feeling well today. Reports occasional contractions. Denies any vaginal bleeding or leakage of fluid. Reports good movement. Chief Complaint: Induction of labor Review of Systems Review of Systems: All systems reviewed & are unremarkable except as noted in HPI and below Constitutional: Constitutional: Reports as per HPI, Reports no additional constitutional complaints, Denies chills, Denies fever(s), Denies headache(s) and Denies night sweats Eyes: Eyes: Reports as per HPI and Reports no additional eye complaints ENT: Reports system reviewed and no additional complaints, except as documented, Reports as per HPI, Reports Normal hearing present and Denies headache(s) Cardiovascular: Cardiovascular: Reports as per HPI, Reports no additional cardiovascular complaints, Denies chest pain and Denies dyspnea Respiratory: Respiratory: Reports as per HPI, Reports no additional respiratory complaints, Denies cough and Denies dyspnea Gastrointestinal: Gastrointestinal: Reports as per HPI, Reports no additional gastrointestinal complaints, Denies abdominal pain, Denies change in bowel habits, Denies change in stool character, Denies nausea and Denies vomiting Genitourinary: Genitourinary: Reports no additional female genitourinary complaints, Reports as per HPI, Denies abnormal vaginal bleeding, Denies genital lesions, Denies hot flashes, Denies dyspareunia, Denies pelvic pain, Denies sexual dysfunction, Denies urinary incontinence, Denies vaginal discharge, Denies vaginal dryness and Denies vaginal odor Musculoskeletal: Musculoskeletal: Reports no additional musculoskeletal complaints and Reports as per HPI Integumentary/Breasts: Skin/Breast: Reports system reviewed and no additional complaints, except as docu, Reports as per HPI, Denies breast pain and Denies nipple discharge Neurologic: Reports system reviewed and no additional complaints, except as documented, Reports as per HPI, Reports Normal hearing present and Denies headache(s) Psychiatric: Psychiatric: Reports no additional psychiatric complaints, Reports as per HPI, Denies anxiety and Denies depression Endocrine: Endocrine: Reports no additional endocrine complaints and Reports as per HPI Hematologic/Lymphatic: Hematologic/Lymphatic: Reports no additional hematologic/lymphatic complaints and Reports as per HPI Allergic/Immunologic: Allergic/Immunologic: Reports no additional allergic/immunologic complaints and Reports as per HPI PMFSH Past Medical History Medical History ADHD Depression Family history of factor V Leiden mutation Surgical History Surgical History History of placement of ear tubes [place] teeth removed Family History Family History Grandparent Diabetes mellitus Cancer of unknown origin Mother Factor 5 Leiden mutation, heterozygous Breast cancer in female Social History Social History Smoking status: Never smoker Second hand tobacco smoke exposure: No Alcohol intake: never Substance use: former Substance use type: marijuana Gender identity (if verbalized by the patient): Female Spiritual care concerns: No Meds Home Medications and Allergies Home Medications Medication Instructions Recorded Confirmed Type prenat.vits,aleena,[id number] 1 tablet PO DAILY 04/10/21 09/26/21 History Allergies Allergy/AdvReac Type Severity Reaction Status Date / Time No Known Allergies Allergy Unknown Verified 12
--- NOTE | 2021-09-27 11:01 | WPDHPUPDATE1 ---
History and Physical Update Update Date/Time: 09/27/21 11:01 History and Physical has been reviewed, including an updated exam of the patient. There are NO changes in the patient's condition. Risks, benefits, and alternatives have been discussed and questions answered. Patient agrees to proceed with procedure.
[2021-09-27] MEDS: OXYTOCIN 30 UNITS/NS 500 ML 30 UNITS/500 ML BAG 125 UNITS IV CONT (11:17)
[2021-09-27 13:34] LABS: Rapid Plasma Reagin Non-Reactive (NonReactive)
--- NOTE | 2021-09-27 16:11 | OBPPTRN ---
141 - Patient transferred to post room #278 via wheelchair. Support person present. Oriented to unit, room, information board, rooming in, admission packet and security measures. Patient verbalizes understanding.
[2021-09-27] MEDS: IBUPROFEN 600 MG TABLET PO ×2 (17:01→23:51)
[2021-09-27] MEDS: ACETAMINOPHEN 325 MG TABLET 650 MG PO (23:50)
[2021-09-28] VITALS: BP 109/65; PULSE 82; RESP 18; TEMP 36.6
[2021-09-28 04:00] VITALS: BP 102/55; PULSE 80; RESP 18; TEMP 37.1
[2021-09-28 05:11] LABS: Hematocrit 31.5 % (37.0-47.0); Hemoglobin 11.1 g/dL (12.0-15.0)
--- NOTE | 2021-09-28 08:05 | PC.NURSE ---
Consult with pt., mother reports has been sleepy and is struggling with latching. Mother is sore on both nipples with latch. Right areola has a bruise from incorrect latch and left nipple has bruising and scabbing. Mother has been given the Latch Assist to help with a deeper latch. Reviewed infant feeding cues, frequencies, duration of feedings, feeding elimination flow sheet, and signs of adequate intake. Demonstrated stimulation techniques to wake for feeding. Nipple care reviewed of lanolin after feedings and warm compresses as needed. Requested mother to call out for RN/LC assistance next feeding to assess latch due reported nipple tenderness. Instructed feeding should be initiated three hours from start of last feeding or if feeding cues are noted before. Mother voiced understanding of information shared.
[2021-09-28 08:20] VITALS: BP 127/78; PULSE 84; RESP 18; TEMP 37.3; O2SAT 100
[2021-09-28 08:30] VITALS: PULSE 84; RESP 18; O2SAT 100
--- NOTE | 2021-09-28 09:25 | PM.OBPNVD ---
OB - PN: Subj Subjective Date/time seen: 09/28/21 09:25 Patient doing well this morning. Pain well controlled with medication. Minimal lochia. Ambulating without difficulty. Denies any urinary complaints. OB - PN: Obj Data Labs CBC & Chem 7: 09/28/21 03:48 Labs: Laboratory Results - last 24 hr 09/26/21 09/28/21 17:31 03:48 Hgb 11.1 L Hct 31.5 L RPR Non-reactive OB - PN A/P Assessment and Plan (1) Normal spontaneous vaginal delivery: Code(s): O80 - Encounter for full-term uncomplicated delivery Status: Acute Assessment and Plan: PPD#1 doing well continue routine care anticipate dc home tomorrow Time Spent With Patient Time: Total time spent is greater than 50% in coordination of care (as documented) at patient's floor/unit and/or counseling patient: Exam Const: General: cooperative, healthy appearing, comfortable and no acute distress GI: Inspection: non-distended GI Palp: Yes Soft to palpation and No Tenderness to palpation present (GI) Other: fundus firm below umbilicus Extrem: Right lower extremity: no edema Left lower extremity: no edema Other: no calf tenderness
--- NOTE | 2021-09-28 10:39 | WPDANLDPN2 ---
Anes-Prog Note L&D Date/Time: 09/28/21 10:39 Comfortable throughout: labor and delivery Neuraxial method: epidural Epidural/Spinal procedure site: clean & non-tender Neuro status: Neuro function grossly intact. Cardiovascular status: normal Respiratory status: normal Airway patency: baseline Mental status: baseline Post-Op hydration status: normal Vital Signs: Last Vital Signs Temp 37.3 C 09/28/21 08:20 Pulse 84 09/28/21 08:20 Resp 18 09/28/21 08:20 BP 127/78 09/28/21 08:20 Pulse Ox 100 09/28/21 08:20 Pain score (VAS): 10/29 Post-procedural complaints: none Patient feedback: Patient satisfied with anesthetic care.
--- NOTE | 2021-09-28 12:15 | PC.NURSE ---
Mother called out for assist with feeding. Reviewed feeding cues, frequencies, duration of feedings, feeding elimination flow sheet, and signs of adequate intake. Demonstrated stimulation techniques to wake infant for feeding. Assisted with infant to breast. Reviewed positioning/alignment in cross cradle, holding breast in ?U? hold and guided asymmetrical latch on. Reviewed rational for each. Instructions given on Latch Assist to draw out nipple. Infant able to latch correctly within a few attempts. Infant nursed eagerly with steady draws and occasional swallowing noted, some pausing noted. Reviewed signs of a correct latch, effective nursing and suck swallow ratio. Suggested mother stimulate while feeding to increase stimulation for milk supply, for increased intake and to assist with maintaining deep latch. Infant would slip to shallow latch causing tenderness. Demonstrated how to adjust latch more deeply while feeding as needed. Mother reports she can feel the difference in latch with less tenderness. Nipple care reviewed of lanolin after feedings, warm compresses as needed. Instructed mother to call out for RN assistance if she is unable to latch infant for feeding or she has discomfort with nursing. Instructed feeding should be initiated three hours from start of last feeding or if feeding cues are noted before. Mother voiced understanding of information shared.
[2021-09-28] MEDS: DOCUSATE SODIUM 100 MG CAPSULE PO (14:34)
[2021-09-28] MEDS: IBUPROFEN 600 MG TABLET PO (14:34)
[2021-09-28] MEDS: MULTIVIT/MIN/PREN/FOL AC/IRON TABLET 1 TAB PO (14:34)
[2021-09-28] MEDS: ACETAMINOPHEN 325 MG TABLET 650 MG PO (14:35)
[2021-09-28 19:00] VITALS: BP 119/71; PULSE 86; RESP 18; TEMP 36.9
[2021-09-29 08:00] VITALS: BP 115/76; PULSE 97; RESP 18; TEMP 36.8
--- NOTE | 2021-09-29 09:59 | PM.OBPNVD ---
OB - PN: Subj Subjective Date/time seen: 09/29/21 09:59 Patient doing well this morning. Pain well controlled with medication. Minimal lochia. Ambulating without difficulty. Denies any urinary complaints. OB - PN: Obj Data Labs CBC & Chem 7: 09/28/21 03:48 OB - PN A/P Assessment and Plan (1) Normal spontaneous vaginal delivery: Code(s): O80 - Encounter for full-term uncomplicated delivery Status: Acute Assessment and Plan: PPD#2 doing well dc home in stable condition emergency precautions reviewed f/u in office in 4-6 weeks for visit Time Spent With Patient Time: Total time spent is greater than 50% in coordination of care (as documented) at patient's floor/unit and/or counseling patient: Exam Const: General: cooperative, healthy appearing, comfortable and no acute distress GI: Inspection: non-distended GI Palp: Yes Soft to palpation and No Tenderness to palpation present (GI) Other: fundus firm below umbilicus Extrem: Right lower extremity: no edema Left lower extremity: no edema Other: no calf tenderness
--- NOTE | 2021-09-29 10:01 | P.DS_ITS ---
DS: Admitting Diagnosis Discharge Date 09/29/21 Admitting Diagnosis Induction of labor OB - DS: Summary OB Procedures : None OB Procedures Intrapartum: Spontaneous Vag Delivery OB Procedures: : None Time Spent with Patient Time attestation: Total time spent providing and/or coordinating discharge se rvices: Discharge Plan Discharge Attending physician on discharge: Moni Barr Discharging Clinician: Moni Barr Anticipated Discharge Date/Time: 09/29/21 10:01 Patient Disposition: Home, Self-Care Activity: as tolerated and pelvic rest Diet: regular Discharge Instructions: Call office ([phone]) to schedule a visit in 4-6 weeks. You may take Ibuprofen 600mg every 6 hours as needed for pain. Pain medication may make you constipated. It may be helpful to take an [id number] stool softener, such as Colace and/or Senokot, along with the pain medication to help lessen constipation. Call office or go to ED for pain not controlled with medication, headache, chest pain, shortness of breath, fever, chills, persistent nausea or vomiting, severe abdominal pain, heavy vaginal bleeding >2 pads/hour, foul vaginal discharge or odor, or problems with your breasts. Patient Instructions: Antibiotic Form Stand Alone Forms: General Discharge Information Follow-up/Referrals: Moni Barr MD [Physician] - Discharge Medications: Continued prenat.vits,aleena,[id number] Tablet 1 tablet PO DAILY RF: 0 Date of admission: 09/26/21 17:03 Primary Care Provider: Lv Malagon Admitting Provider: Moni Barr Attending physician on admission: Moni Barr Condition: Stable
[2021-09-29] MEDS: IBUPROFEN 600 MG TABLET PO (13:23)
[2021-09-29] MEDS: MULTIVIT/MIN/PREN/FOL AC/IRON TABLET 1 TAB PO (13:23)
[2021-10-01 09:19] VITALS: BP 138/82; PULSE 90; RESP 20; TEMP 36.8; O2SAT 100
== END 2021-09-29 14:31 | disposition home or self-care (01) | DRG 807 ==
LOC: ANHLDR 17:06 → ANHOB2 09-27 14:14
PROVIDERS: Admitting Provider Student in an Organized Health Care Education/Training Program; PCP Internal Medicine; Visit Provider Student in an Organized Health Care Education/Training Program
DX: O62.3 Precipitate labor (principal); Z37.0 Single live birth; O76 Abnormality in fetal heart rate and rhythm complicating labor and delivery; O71.82 Other specified trauma to perineum and vulva; O70.0 First degree perineal laceration during delivery; Z3A.39 39 weeks gestation of pregnancy
CPT/HCPCS: 36415; 85014; 85018; 85025; 86592; 86850; 86900; 86901; A9270; J2590; J3010; J7030; J7120

== ENCOUNTER 2022-12-24 09:27 | Emergency (ER) | payer BC, SELFPAY ==
[2022-12-24 09:40] VITALS: BP 133/84; PULSE 114; RESP 16; TEMP 37.6; O2SAT 100
--- NOTE | 2022-12-24 09:41 | ED.URI ---
HPI - URI/Sore Throat General Chief Complaint: Upper Respiratory Infection Stated Complaint: sorethroat Time Seen by Provider: 12/24/22 09:42 Source: patient Mode of arrival: ambulatory Limitations: no limitations History of Present Illness HPI Narrative: Patient is a 22-year-old female that presents with congestion and ear pressure for a week, a sore throat starting 3 days ago. Denies any headaches, fevers, chills, cough. Works in a daycare. Her baby at home is congested as well. Related Data Allergies Allergy/AdvReac Type Severity Reaction Status Date / Time No Known Allergies Allergy Unknown Verified 12/24/22 09:41 Review of Systems Review of Systems: All systems reviewed & are unremarkable except as noted in HPI and below Constitutional: Constitutional: Denies body ache(s), Denies fever(s), Denies headache(s), Denies malaise and Denies weakness Eyes: Eyes: Reports no additional eye complaints and Denies loss of vision ENT: Reports system reviewed and no additional complaints, except as documented, Denies otalgia, Denies headache(s), Reports nasal congestion, Denies sinus pain and Reports sore throat Cardiovascular: Cardiovascular: Reports no additional cardiovascular complaints, Denies chest pain, Denies irregular heart rhythm and Denies dyspnea Respiratory: Respiratory: Reports no additional respiratory complaints, Denies cough and Denies dyspnea Gastrointestinal: Gastrointestinal: Reports no additional gastrointestinal complaints, Denies abdominal pain, Denies melena, Denies hematochezia, Denies diarrhea, Denies nausea and Denies vomiting Musculoskeletal: Musculoskeletal: Reports no additional musculoskeletal complaints, Denies back pain, Denies myalgias and Denies arthralgias Integumentary/Breasts: Skin/Breast: Reports system reviewed and no additional complaints, except as docu, Denies pruritus and Denies rash Neurologic: Reports system reviewed and no additional complaints, except as documented, Denies headache(s), Denies loss of vision and Denies weakness Psychiatric: Psychiatric: Reports no additional psychiatric complaints PMFSH Past Medical History Medical History ADHD Depression Family history of factor V Leiden mutation Normal spontaneous vaginal delivery Surgical History Surgical History History of placement of ear tubes [place] teeth removed Family History Family History Grandparent Diabetes mellitus Cancer of unknown origin Mother Factor 5 Leiden mutation, heterozygous Breast cancer in female Social History Social History Smoking status: Never smoker Second hand tobacco smoke exposure: No Alcohol intake: never Substance use: former Substance use type: marijuana Gender identity (if verbalized by the patient): Female Spiritual care concerns: No Comments At time of signature, agree with nursing past medical, surgical, social and family history. There is no relevant family history pertinent to the presenting complaint. Exam Const: General: cooperative, healthy appearing, comfortable, no acute distress and well nourished Nutritional Appearance: well nourished Orientation/consciousness: patient oriented x3 Limitations: no limitations HENMT: Head: normal to inspection, normocephalic and atraumatic Ears: hearing grossly normal bilaterally, external ears normal and TM's normal bilaterally Face/Nose/Sinus: Normal external nose present, Normal nares present, Normal nasal mucous membranes and turbinates present, Normal septum present, normal facial exam, sinuses nontender and face symmetric Face and sinus: normal facial exam, sinuses nontender and face symmetric Mouth: Yes Normal oral and palatal mucosa present, Yes lip normal and Yes moist mucous membranes T
== END 2022-12-24 09:58 | disposition home or self-care (01) ==
PROVIDERS: Emergency Provider Nurse Practitioner Family; PCP Family Medicine
DX: J02.0 Streptococcal pharyngitis (principal)
CPT/HCPCS: 87880; 99213; G0463

== ENCOUNTER 2023-07-21 08:33 | Emergency (ER) | payer BC, SELFPAY ==
[2023-07-21 08:44] VITALS: BP 128/90; PULSE 121; RESP 16; TEMP 37.2; O2SAT 100
--- NOTE | 2023-07-21 09:07 | ED.URI ---
HPI - URI/Sore Throat General Chief Complaint: Upper Respiratory Infection Stated Complaint: Sore Throat Time Seen by Provider: 07/21/23 09:08 Source: patient, RN notes reviewed and old records reviewed Mode of arrival: ambulatory Limitations: no limitations History of Present Illness HPI Narrative: 23-year-old female who presents to [facility] with complaints of sore throat since middle of last week Patient states she has had some body aches, chills last night and they have improved this morning. She does have some ear pressure right greater than left with no ear drainage noted. Patient reports she does have some postnasal drainage and some sinus congestion, has not taking anything for her discomfort. Patient does have some right lymphadenopathy with tenderness on palpation. MD elicited complaint: sore throat, rhinorrhea and nasal congestion Pertinent past history: asthma (as child) and other (strep) Onset (ago): week(s) (1) Pain scale (0-10): 3 Able to tolerate fluids by mouth: Yes Treatments prior to arrival: none Related Data Allergies Allergy/AdvReac Type Severity Reaction Status Date / Time No Known Allergies Allergy Unknown Verified 07/21/23 08:42 Review of Systems Review of Systems: CONSTITUTIONAL:Positive for malaise, chills, sweats, or fever. EYES: Denies visual changes, redness, or discharge. ENT: Reports rhinorrhea, congestion, sinus pain, otalgia and sore throat. CARDIOVASCULAR: Denies chest pain, palpitations, or edema. RESPIRATORY: Reports no cough.? Denies dyspnea. GASTROINTESTINAL: Denies abdominal pain, nausea, vomiting, diarrhea SKIN: Denies rash or itching. MUSCULOSKELETAL: some myalgia. NEUROLOGIC: Denies headache. All systems reviewed & are unremarkable except as noted in HPI and below PMFSH Past Medical History Medical History ADHD Asthma as child Depression Family history of factor V Leiden mutation Normal spontaneous vaginal delivery Surgical History Surgical History History of placement of ear tubes [place] teeth removed Family History Family History Grandparent Diabetes mellitus Cancer of unknown origin Mother Factor 5 Leiden mutation, heterozygous Breast cancer in female Social History Social History Smoking status: Never smoker Second hand tobacco smoke exposure: No Alcohol intake: never Substance use: never Substance use type: marijuana Gender identity (if verbalized by the patient): Female Spiritual care concerns: No Comments At time of signature, agree with nursing past medical, surgical, social and family history. There is no relevant family history pertinent to the presenting complaint Exam Narrative: GENERAL: Well-appearing, well-nourished, and in no acute distress. HEAD: Normocephalic EYES: PERRLA, conjunctivae clear ENT: Nares clear, turbinates edematous and erythematous, clear discharge. Mucous membranes moist. TM pearly harper with dull light reflex bilaterally; no tragal tenderness. Oropharynx erythematous without lesions. Tonsils red and enlarged and without exudate, no drooling, no hoarseness, no trismus, uvula midline.post nasal drainage NECK: Supple. lymphadenopathy CHEST: Clear to auscultation, breath sounds equal. No wheezing, rhonchi, rales, or stridor. No respiratory distress, speaks in full sentences.no cough noted SAO2 100% on room air HEART: Regular rate and rhythm. No murmur heard. SKIN: Warm, dry, no rash. NEURO: Alert and oriented x3. PSYCH: Normal mood and affect Course Course Emergency Course: Patient is aware of diagnosis, understands and agrees to treatment plan.? Anticipatory guidance given.? Patient agrees to follow-up as directed and is aware of reasons to seek care
== END 2023-07-21 09:30 | disposition home or self-care (01) ==
PROVIDERS: Emergency Provider Registered Nurse; PCP Family Medicine
DX: J02.0 Streptococcal pharyngitis (principal)
CPT/HCPCS: 87880; 99213; G0463

== ENCOUNTER 2023-08-04 13:52 | Emergency (ER) | payer BC, SELFPAY ==
--- NOTE | 2023-08-04 13:57 | ED.URI ---
HPI - URI/Sore Throat General Chief Complaint: Nausea/Vomiting/Diarrhea Stated Complaint: VOMITING/CHILLS/BODY ACHES Time Seen by Provider: 08/04/23 13:58 Source: patient Mode of arrival: ambulatory Limitations: no limitations History of Present Illness HPI Narrative: Patient is a 23-year-old female who presents with 3 days of nausea, vomiting, body aches and chills. 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 Son has similar symptoms that started the next day. Reports she has not been able to keep any medication down. Reports diarrhea 2 to 3 times a day. Has not taken her temperature. Denies any congestion, sore throat, cough, ear pain, abdominal pain or cramping. Related Data Allergies Allergy/AdvReac Type Severity Reaction Status Date / Time No Known Allergies Allergy Unknown Verified 08/04/23 13:56 Review of Systems Review of Systems: All systems reviewed & are unremarkable except as noted in HPI and below Constitutional: Constitutional: Reports body ache(s), Reports chills, Denies fatigue, Denies fever(s), Denies headache(s), Denies malaise and Denies weakness Eyes: Eyes: Denies blurry vision, Denies itchy eyes and Denies loss of vision ENT: Denies otalgia, Denies headache(s), Denies nasal congestion, Denies sinus pain and Denies sore throat Cardiovascular: Cardiovascular: Denies chest pain, Denies irregular heart rhythm and Denies dyspnea Respiratory: Respiratory: Reports cough and Denies dyspnea Gastrointestinal: Gastrointestinal: Denies abdominal pain, Reports diarrhea, Reports nausea and Reports vomiting Musculoskeletal: Musculoskeletal: Denies back pain, Denies myalgias and Denies arthralgias Integumentary/Breasts: Skin/Breast: Denies pruritus and Denies rash Neurologic: Denies headache(s), Denies loss of vision and Denies weakness Psychiatric: Psychiatric: Reports no additional psychiatric complaints Endocrine: Endocrine: Denies fatigue Allergic/Immunologic: Allergic/Immunologic: Denies itchy eyes PMFSH Past Medical History Medical History ADHD Asthma as child Depression Family history of factor V Leiden mutation Normal spontaneous vaginal delivery Surgical History Surgical History History of placement of ear tubes [place] teeth removed Family History Family History Grandparent Diabetes mellitus Cancer of unknown origin Mother Factor 5 Leiden mutation, heterozygous Breast cancer in female Social History Social History Smoking status: Never smoker Second hand tobacco smoke exposure: No Alcohol intake: never Substance use: never Substance use type: marijuana Gender identity (if verbalized by the patient): Female Spiritual care concerns: No Comments At time of signature, agree with nursing past medical, surgical, social and family history. There is no relevant family history pertinent to the presenting complaint. Exam Const: General: cooperative, healthy appearing, comfortable, no acute distress and well nourished Nutritional Appearance: well nourished Orientation/consciousness: patient oriented x3 Limitations: no limitations HENMT: Head: normal to inspection, normocephalic and atraumatic Ears: hearing grossly normal bilaterally, external ears normal, TM's normal bilaterally, EAC's normal and no periauricular adenopathy Face/Nose/Sinus: Normal external nose present, Normal nasal mucous membranes and turbinates present, normal facial exam, sinuses nontender and face symmetric Face and sinus: normal facial exam, sinuses nontender and face symmetric Mouth: Yes Normal oral and palatal mucosa present, Yes lip normal, Yes tongue normal, Yes Normal salivary glands and ducts present, Yes oropharynx normal and Yes moist mucous membranes T
[2023-08-04 14:00] VITALS: BP 123/91; PULSE 119; RESP 16; TEMP 36.8; O2SAT 100
[2023-08-04 15:29] VITALS: BP 99/71; PULSE 91; RESP 19; O2SAT 99
== END 2023-08-04 15:29 | disposition home or self-care (01) ==
PROVIDERS: Emergency Provider Nurse Practitioner Family; PCP Family Medicine
DX: K52.9 Noninfective gastroenteritis and colitis, unspecified (principal); Z20.822 Contact with and (suspected) exposure to COVID-19
CPT/HCPCS: 87426; 87804; 99213; C9803; G0463

== ENCOUNTER 2023-12-24 17:51 | Emergency (ER) | payer BC, SELFPAY ==
[2023-12-24 17:58] VITALS: BP 123/76; PULSE 92; RESP 16; TEMP 37; O2SAT 100
--- NOTE | 2023-12-24 18:00 | ED.URI ---
HPI - URI/Sore Throat General Chief Complaint: Upper Respiratory Infection Stated Complaint: RUNNY NOSE/COUGH/CHEST Source: patient Mode of arrival: ambulatory Limitations: no limitations History of Present Illness HPI Narrative: Verónica is a 23-year-old female patient presenting to the clinic today with complaints of runny nose, cough, and chest congestion x2 days. She reports she is also having some UTI symptoms. She reports UTI symptoms have been going on for 1.5 weeks. She denies any fever, chills, body aches, flank pain, or abdominal pain. MD elicited complaint: sore throat and nasal congestion Related Data Allergies Allergy/AdvReac Type Severity Reaction Status Date / Time No Known Allergies Allergy Unknown Verified 12/24/23 18:07 Review of Systems Review of Systems: Pertinent positives per HPI. Patient denies any fever, chills, rash, headache, visual changes, dizziness, shortness of breath, chest pain, palpitations, nausea, vomiting, diarrhea, constipation, abdominal pain, or any urinary issues. PMFSH Past Medical History Medical History ADHD Asthma as child Depression Family history of factor V Leiden mutation Normal spontaneous vaginal delivery Surgical History Surgical History History of placement of ear tubes [place] teeth removed Family History Family History Grandparent Diabetes mellitus Cancer of unknown origin Mother Factor 5 Leiden mutation, heterozygous Breast cancer in female Social History Social History Smoking status: Never smoker Second hand tobacco smoke exposure: No Alcohol intake: never Substance use: never Substance use type: marijuana Gender identity (if verbalized by the patient): Female Spiritual care concerns: No Comments At the time of my signature, I reviewed and agree with the nursing past medical, surgical, social, and family history. There is no relevant family history pertinent to the patient complaint. Exam Narrative: General: Well-developed, well nourished, in no apparent distress Head: Normocephalic, atraumatic Eyes: Pupils equally round and reactive to light bilaterally, EOM intact, sclera and conjunctive clear, no discharge, lids normal Ears: TMs intact and clear, ear canals clear, no drainage, grossly hearing normal. Nose: Nares patent, no discharge, no inflammation, no sinus tenderness. Mouth: Oral pharynx without lesions or masses, good dentition, MMM. Neck: Supple, trachea midline, no enlargement of anterior or posterior cervical nodes, no thyroid masses or goiter palpable. Cardio: Regular rate and rhythm, s1 and s2 normal, no murmur appreciated. Resp: Clear to auscultation bilaterally, no rhonchi, rales, wheezing or rubs Abdomen: Soft, pliable, bowel sounds present in all quadrants, non-tender to palpation, no organomegly, no CVAT tenderness. Course Course Emergency Course: Portions of this record may have been created with voice recognition software. Level of Care: Express Care Visit Vital Signs Vital signs: Vital Signs Temperature 37.0 C 12/24/23 17:58 Pulse Rate 92 12/24/23 17:58 Respiratory Rate 16 12/24/23 17:58 Blood Pressure 123/76 12/24/23 17:58 Pulse Oximetry 100 12/24/23 17:58 Temperature 37.0 C 12/24/23 17:58 Pulse Rate 92 12/24/23 17:58 Respiratory Rate 16 12/24/23 17:58 Blood Pressure 123/76 12/24/23 17:58 Pulse Oximetry 100 12/24/23 17:58 Vital signs reviewed MDM - URI/Sore Throat MDM Narrative Medical decision making narrative: At the time of visit patient is resting comfortably on the exam table. Patient appears to be nontoxic. Labs: COVID and influenza testing was negative. UA is positive for 1+ leukocyte. We will send urine for
== END 2023-12-24 18:17 | disposition home or self-care (01) ==
PROVIDERS: Emergency Provider Nurse Practitioner Family; PCP Family Medicine
DX: N39.0 Urinary tract infection, site not specified (principal); J06.9 Acute upper respiratory infection, unspecified; Z20.822 Contact with and (suspected) exposure to COVID-19
CPT/HCPCS: 81003; 87086; 87426; 87804; 99213; G0463

== ENCOUNTER 2024-03-22 17:09 | Emergency (ER) | payer OTHER, SELFPAY ==
[2024-03-22 17:25] VITALS: BP 120/73; PULSE 121; RESP 18; TEMP 39.6; O2SAT 100
--- NOTE | 2024-03-22 17:40 | ED.URI ---
HPI - URI/Sore Throat General Chief Complaint: Upper Respiratory Infection Stated Complaint: Strep Symptoms Time Seen by Provider: 03/22/24 17:40 Source: patient Mode of arrival: ambulatory Limitations: no limitations History of Present Illness HPI Narrative: 24-year-old female presents with complaint of sore throat, fatigue, fever, body aches, chills, nausea for 2 days. Patient took Tylenol this morning. All Systems reviewed and negative except as noted above. Related Data Allergies Allergy/AdvReac Type Severity Reaction Status Date / Time No Known Allergies Allergy Unknown Verified 03/22/24 17:29 Review of Systems Review of Systems: CONSTITUTIONAL: Reports fever, chills, or sweats. EYES: Denies visual changes, redness, or discharge. ENT: Denies rhinorrhea, congestion. Reports sore throat. Denies otalgia. CARDIOVASCULAR: Denies chest pain, palpitations, or edema. RESPIRATORY: Denies cough or dyspnea. GASTROINTESTINAL: Denies abdominal pain, nausea, vomiting, or diarrhea. GENITOURINARY: Denies dysuria or hematuria. SKIN: Denies rash or itching. MUSCULOSKELETAL: Denies back pain, joint pain, or myalgia. NEUROLOGIC: Reports headache. Denies numbness, or weakness. PSYCHIATRIC: Denies anxiety or depression. All other systems reviewed are negative, except as documented in HPI. [facility] Past Medical History Medical History ADHD Asthma as child Depression Family history of factor V Leiden mutation Normal spontaneous vaginal delivery Surgical History Surgical History History of placement of ear tubes [place] teeth removed Family History Family History Grandparent Diabetes mellitus Cancer of unknown origin Mother Factor 5 Leiden mutation, heterozygous Breast cancer in female Social History Social History Smoking status: Never smoker Second hand tobacco smoke exposure: No Alcohol intake: never Substance use: never Substance use type: marijuana Gender identity (if verbalized by the patient): Female Spiritual care concerns: No Comments At time of signature, agree with nursing past medical, surgical, social and family history. There is no relevant family history pertinent to the presenting complaint. Exam Narrative: GENERAL: This is a well-nourished, well-developed patient, ill-appearing but in no acute distress. HEAD: normocephalic, atraumatic. EYES: PERRL. Sclera clear/white. Vision is grossly intact. EARS: External ears normal, auditory canals clear and without drainage, TMs normal without perforation. Hearing grossly intact. NOSE: External nose normal with no obvious nasal discharge, nares without redness, no rhinorrhea. THROAT: Mucous membranes moist, erythema, swelling, tonsils 1+ bilaterally without exudates. NECK: Neck supple, non-tender without lymphadenopathy, masses or thyromegaly. CARDIOVASCULAR: Regular rate and rhythm without murmurs, gallops, or rubs. RESPIRATORY: Clear to auscultation. Breath sounds equal bilaterally. No wheezes, rales, or rhonchi. SKIN: warm, Dry, intact with no suspicious lesions or rash, good texture and turgor. NEURO: awake, alert, and oriented to person, place and time. There were no obvious focal neurologic abnormalities. EXTREMITIES: No joint tenderness, effusion, or edema noted. Course Course Level of Care: Express Care Visit Vital Signs Vital signs: Vital Signs Temperature 39.6 C H 03/22/24 17:25 Pulse Rate 121 H 03/22/24 17:25 Respiratory Rate 18 03/22/24 17:25 Blood Pressure 120/73 03/22/24 17:25 Pulse Oximetry 100 03/22/24 17:25 Oxygen Delivery Room Air 03/22/24 17:25 Temperature 39.6 C H 03/22/24 17:43 Pulse Rate 121 H 03/22/24 17:25 Respiratory Rate 18 03/22/24 17:25 Blood Pressu
[2024-03-22 17:43] VITALS: TEMP 39.6
[2024-03-22] MEDS: IBUPROFEN 600 MG TABLET PO (17:43)
[2024-03-22 18:01] VITALS: TEMP 39.4
== END 2024-03-22 18:01 | disposition home or self-care (01) ==
PROVIDERS: Emergency Provider Nurse Practitioner Family; PCP Family Medicine
DX: J02.0 Streptococcal pharyngitis (principal)
CPT/HCPCS: 87880; 99213; A9270; G0463

== ENCOUNTER 2024-04-19 08:29 | Emergency (ER) | payer OTHER, SELFPAY ==
--- NOTE | 2024-04-19 08:40 | ED.URI ---
HPI - URI/Sore Throat General Chief Complaint: Upper Respiratory Infection Stated Complaint: SWOLLEN THROAT Time Seen by Provider: 04/19/24 08:50 Source: patient, RN notes reviewed and old records reviewed Mode of arrival: ambulatory Limitations: no limitations History of Present Illness HPI Narrative: 24 year old female who presents to [facility] care with complaints of sore throat starting yesterday with increasing pain with swallowing. Patient reports that she had Strep in March 2024 and was treated with Amoxicillin. Patient report that her throat feels swollen and has painful swallowing, denies any fevers, has been taking Ibuprofen for her discomfort. MD elicited complaint: sore throat Pertinent past history: other (strep throat in March) Onset (ago): day(s) (day 2) Consistency: constant Severity: moderate Pain scale (0-10): 5 Able to tolerate fluids by mouth: Yes Treatments prior to arrival: ibuprofen Related Data Allergies Allergy/AdvReac Type Severity Reaction Status Date / Time No Known Allergies Allergy Unknown Verified 04/19/24 08:38 Review of Systems Review of Systems: CONSTITUTIONAL: Reports malaise, no chills, sweats, or fever. EYES: Denies visual changes, redness, or discharge. ENT: Reports rhinorrhea, congestion,no sinus pain, no otalgia and positive for sore throat. CARDIOVASCULAR: Denies chest pain, palpitations, or edema. RESPIRATORY: Reports no cough.? Denies dyspnea. GASTROINTESTINAL: Denies abdominal pain, nausea, vomiting, diarrhea SKIN: Denies rash or itching. MUSCULOSKELETAL: Denies myalgia. NEUROLOGIC: Denies headache. All systems reviewed & are unremarkable except as noted in HPI and below PMFSH Past Medical History Medical History (Updated 04/19/24 @ 08:55 by Jacquie Roberson NP) ADHD Asthma as child Depression Family history of factor V Leiden mutation Kidney stone Normal spontaneous vaginal delivery Surgical History Surgical History (Updated 04/19/24 @ 08:52 by Jacquie Roberson NP) H/O lithotripsy History of placement of ear tubes [place] teeth removed Family History Family History Grandparent Diabetes mellitus Cancer of unknown origin Mother Factor 5 Leiden mutation, heterozygous Breast cancer in female Social History Social History (Updated 04/19/24 @ 08:53 by Jacquie Roberson NP) Smoking status: Current every day smoker Tobacco type: e-cigarettes/vaping Second hand tobacco smoke exposure: No Alcohol intake: never Substance use: never Substance use type: marijuana Living arrangements: with family Gender identity (if verbalized by the patient): Female Spiritual care concerns: No Comments At time of signature, agree with nursing past medical, surgical, social and family history. There is no relevant family history pertinent to the presenting complaint Exam Narrative: GENERAL: Well-appearing, well-nourished, and in no acute distress. HEAD: Normocephalic EYES: PERRLA, conjunctivae clear ENT: Nares clear, turbinates edematous and erythematous, clear discharge. Mucous membranes moist. TM pearly harper with dull light reflex bilaterally; no tragal tenderness. Oropharynx erythematous without lesions. Tonsils red and enlarged and without exudate, no drooling, no hoarseness, no trismus, uvula midline and swollen. NECK: Supple. lymphadenopathy CHEST: Clear to auscultation, breath sounds equal. No wheezing, rhonchi, rales, or stridor. No respiratory distress, speaks in full sentences.SAO2 100% on room air HEART: Regular rate and rhythm. No murmur heard. SKIN: Warm, dry, no rash. NEURO: Alert and oriented x3. PSYCH: Normal mood and affect Course Course Emergency Course: Patient is aware of diagnosis, understands and agrees to treatment plan.? Anticipatory guidance given.? Patient agrees to follow-up as directed and is aware of reasons to seek care at the em
[2024-04-19 08:42] VITALS: BP 116/78; PULSE 113; RESP 16; TEMP 37.2; O2SAT 100
== END 2024-04-19 09:00 | disposition home or self-care (01) ==
PROVIDERS: Emergency Provider Registered Nurse; PCP Family Medicine
DX: J02.0 Streptococcal pharyngitis (principal)
CPT/HCPCS: 87880; 99213; G0463

== ENCOUNTER 2025-07-11 18:09 | Emergency (ER) | payer OTHER, SELFPAY ==
[2025-07-11 18:12] VITALS: BP 119/83; PULSE 87; RESP 16; TEMP 36.8; O2SAT 100
--- NOTE | 2025-07-11 18:29 | ED_ITS ---
HPI - Skin/Abscess/Foreign Bdy General Chief complaint: Skin/Abscess/Foreign Body Stated complaint: Rash Time Seen by Provider: 07/11/25 18:30 Source: patient, RN notes reviewed and old records reviewed Mode of arrival: ambulatory Limitations: no limitations History of Present Illness HPI narrative: 25-year-old female presents to the [facility] with complaints of a rash that started on Friday. She starts that it started to her arms and now on her legs. Denies any new creams ointments lotions detergents. Related Data Allergies Allergy/AdvReac Type Severity Reaction Status Date / Time No Known Allergies Allergy Unknown Verified 07/11/25 18:14 Review of Systems Review of Systems: All systems reviewed & are unremarkable except as noted in HPI and below Constitutional: Constitutional: Reports no additional constitutional complaints ENT: Reports system reviewed and no additional complaints, except as documented Cardiovascular: Cardiovascular: Reports no additional cardiovascular complaints, Denies chest pain and Denies dyspnea Respiratory: Respiratory: Reports no additional respiratory complaints, Denies chest congestion, Denies cough and Denies dyspnea Musculoskeletal: Musculoskeletal: Reports no additional musculoskeletal complaints Integumentary/Breasts: Skin/Breast: Reports as per HPI [facility] Past Medical History Medical History Kidney stone Asthma as child Normal spontaneous vaginal delivery Family history of factor V Leiden mutation ADHD Depression Surgical History Surgical History H/O lithotripsy History of placement of ear tubes [place] teeth removed Family History Family History Grandparent Diabetes mellitus Cancer of unknown origin Mother Factor 5 Leiden mutation, heterozygous Breast cancer in female Social History Social History Smoking status: Current every day smoker Tobacco type: e-cigarettes/vaping Second hand tobacco smoke exposure: No Alcohol intake: never Substance use: never Substance use type: marijuana Living arrangements: with family Gender identity (if verbalized by the patient): Female Spiritual care concerns: No Comments At the time of my signature, I reviewed and agree with the nursing past medical, surgical, social, and family history. There is no relevant family history pertinent to the patient complaint. Exam Const: General: cooperative, healthy appearing, comfortable, no acute distress, well developed, alert and well nourished Nutritional Appearance: well nourished Orientation/consciousness: patient oriented x3 Limitations: no limitations HENMT: Head: normal to inspection Ears: hearing grossly normal bilaterally, external ears normal, TM's normal bilaterally, EAC's normal, mastoids normal and no periauricular adenopathy Mouth: Yes Normal oral and palatal mucosa present, Yes lip normal, Yes tongue normal and Yes moist mucous membranes Throat: posterior oropharynx normal, uvula midline and no uvular edema Eyes: General: appearance normal, both eyes and all related structures Alignment and Position: alignment normal Neck: Neck: normal visual inspection, full ROM, no lymphadenopathy and no meningeal signs Chest: Chest palpation & inspection: normal inspection of the chest Resp: Effort & Inspection: normal respiratory effort and able to speak in complete sentences Auscultation: clear to auscultation bilaterally, no crackles, no rales, no rhonchi and no wheezes Cardio: Rate: regular rate Skin: General skin exam: normal color and no rashes or lesions noted Rashes: rashes noted Other: Red flat rash arms, legs. Has improved without treatment. Neuro: General: patient oriented x3, gait normal, moves all extremities and no meningeal signs Cognition (Neuro): normal cognition Speech: normal speech Gait exam (Neuro): Normal gait present Extrem: General: normal to inspection, full ROM, capillary refill normal and normal gait Psych: Appearance: grossly normal and well kempt Mental Status: mental status grossly normal Speech and movement: Normal speech and movement present and Clear speech present Affect: normal affect Attitude: cooperative Course Course Level of Care: Express Care Visit Vital Signs Vital signs: Vital Signs Temperature 98.3 F 07/11/25 18:12 Pulse Rate 87 07/11/25 18:12 Respiratory Rate 16 07/11/25 18:12 Blood Pressure 119/83 07/11/25 18:12 Pulse Oximetry 100 07/11/25 18:12 Oxygen Delivery Room Air 07/11/25 18:12 Temperature 98.3 F 07/11/25 18:12 Pulse Rate 87 07/11/25 18:12 Respiratory Rate 16 07/11/25 18:12 Blood Pressure 119/83 07/11/25 18:12 Pulse Oximetry 100 07/11/25 18:12 Oxygen Delivery Room Air 07/11/25 18:12 Reviewed MDM - Skin/Abscess/Foreign Bdy MDM Narrative Medical decision making narrative: 25-year-old female presents to the [facility] with a itchy rash that started on Friday, 3 days ago. No treatment prior to arrival. States that started on her arms has progressed or legs. Has pretty much cleared up. Denies any Triggers Patient is appropriate for outpatient treatment with close follow-up Discharge instructions reviewed with patient, as well as provided in writing per nursing staff. The instructions also include specific and strict return/GO TO THE ER as well as f/u information. All questions have been answered, and the patient deny any further questions with discharge and discharge plan. Some parts of this dictation were generated by voice recognition software and may contain typographical and/or grammatical inaccuracies. Differential Diagnosis Differential diagnosis: Likely abscess of skin or subcutaneous tissue, urticaria, allergic reaction to drug, cellulitis, eczema, insect bites, impetigo and contact dermatitis Lab Data Labs: Lab Results 07/11/25 Range/Units 18:35 POC Grp A Strep Screen Negative (Negative) Reviewed Critical Care Time Critical Care Time Critical Care Time: No Discharge Plan Discharge Clinical Impression: Rash Patient Disposition: Home Condition: Stable Instructions: Acute Rash (ED) Additional Instructions: The most important part of your care is follow up with Primary care provider. Take Benadryl 25mg every 8 hours for itching Take Zyrtec every day Take Pepcid 20mg daily for 7 days Take the steroids, you can take tonight however they may keep you wake. It might be recommended that you wait till 1st thing in the morning to start taking him. Avoid hot showers, Take cool showers. Hot showers will make rashes worse Apply cool compresses every 2-3 hours for 15 minutes Keep a journal of what to have eaten or environmental to see what might be causing the rash. Go to the ER for new or worsening symptoms such as shortness of breath. Patient Language: Portuguese Prescriptions: New prednisone 20 mg tablet See Rx Instructions .Route .COMPLEX Qty: 9 0RF Rx Instructions: Take 40 mg daily for 3 days, 20 mg daily for 3 days No Action Aurovela 24 Fe 1 mg-20 mcg (24)/75 mg (4) tablet See Rx Instructions .ROUTE .COMPLEX Qty: 84 0RF Dose Instruction: TAKE 1 TABLET BY MOUTH DAILY Rx Instructions: TAKE 1 TABLET BY MOUTH DAILY Follow-up/Referrals: Manuel,MD Agus [Primary Care Provider, Unknown] - 1 Week Clinical Impression: Rash Stand Alone Forms: Work/School Release IP Time of Disposition: 18:49
[2025-07-11 18:48] LABS: EDSTREPNEGPOS1 Negative (Negative)
== END 2025-07-11 18:52 | disposition home or self-care (01) ==
PROVIDERS: Emergency Provider Nurse Practitioner; PCP Family Medicine
DX: R21 Rash and other nonspecific skin eruption (principal); F17.290 Nicotine dependence, other tobacco product, uncomplicated
CPT/HCPCS: 87081; 87880; 99213; G0463